=== PATIENT | female | born 1990 | race Caucasian/White ===

== ENCOUNTER → 2019-02-12 | Outpatient (CLI) | payer OTHER ==
--- NOTE | 2019-02-12 21:25 | CONS ---
CONSULTATION DATE OF SERVICE: 02/12/2019 29-year-old lady who has been evaluated in the sleep center for possible obstructive sleep apnea-hypopnea syndrome. HISTORY OF PRESENT ILLNESS/SLEEP WAKE EVALUATION: SLEEP SCHEDULE: Patient usual sleep schedule on working days from 9 p.m. to 8 am, and on weekends from 10 p.m. to 9:00 am. FALLING ASLEEP: Usually no problems with falling asleep, although has a TV set in bedroom. DURING SLEEP: The patient has loud snoring and awakenings from sleep up to 4 times with up to 3 episodes of nocturia. She also has symptoms of restless legs, but no history of kicking. DURING THE DAY/SLEEP WAKE EVALUATION: In the morning, she may wake up tired, has difficulties to pay attention. Has problem with concentration, depression and anxiety. [place] Sleepiness Scale is 8. She may take naps once a day at 1:00 pm. Usually she does not feel refreshed after naps. She may see vivid dreams during nap. No history of hypnagogic hallucinations, sleep paralysis or cataplexy. PAST MEDICAL HISTORY: Positive for questionable depression. MEDICATIONS: Zoloft, control pill. SOCIAL HISTORY: Negative for smoking. Alcohol consumption occasional. FAMILY HISTORY: Positive for hypertension, heart problems, hyperlipidemia, sleep apnea by her father, cancer, diabetes, mental illness. REVIEW OF SYSTEMS: Multiple awakenings from sleep, sleepiness during the day. Takes naps daily. PAST SURGICAL HISTORY: Tonsillectomy and tubes insertion in the ears in childhood. PHYSICAL EXAM: A pleasant lady without distress. BP 107/78, HR 82, RR 16, height 5 feet 2.5 inches, weight 170.2, body mass index 30.5, temperature 98.3, oxygen saturation at room air 98%. Oropharynx extremely low position of soft palate. Mallampati 4. Neck 14 inches in circumference. NECK: Supple, no JVD. Thyroid is not palpable. LUNGS: Clear to percussion and to auscultation. Good air exchange. No wheezing or rhonchi. HEART: S1, S2 regular. No murmurs, gallops, or rubs. ABDOMEN: Soft and nontender. Bowel sounds are present. No organomegaly appreciated. EXTREMITIES: No clubbing or cyanosis. 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 Cranial nerves 2 to 7 intact. There is no fasciculation or atrophy. noted. No focal deficits observed. IMPRESSION: 1. Loud snoring, multiple awakenings from sleep with nocturia, low position of soft palate. The patient takes naps daily, excessive daytime sleepiness, obstructive sleep apnea-hypopnea syndrome. 2. Restless leg symptoms. 3. Differential diagnosis should include hypersomnia because patient feels sleepy during the day. 4. Questionable depression but I doubt that. 5. Status post tonsillectomy. 6. History of ear infection in childhood, status post tube insertion. PLAN: 1. Polysomnography for evaluation of patient's breathing during sleep. 2. CPAP/BiPAP titration if sleep study confirms obstructive sleep apnea-hypopnea syndrome. 3. Preferable position during sleep on the side. 4. No driving if patient feels any sleepiness. 5. I will see patient for follow up visit to explain results of testing and following plan. 6. Multiple sleep latency test if the sleep study will be negative for obstructive sleep apnea-hypopnea syndrome. 7. The patient has symptoms of restless legs. SSRIs may increase the risk for periodic limb movements. Thank you very much for referring this patient for consultation. Sincerely, Josias Oshea MD, PhD, FAASM Diplomat of [place] [employer] [place] [employer] Pearl Peller of [facility] [place] MMODL / IJN: [id number] /
== END | disposition home or self-care (01) ==
LOC: SLEEP 15:31
PROVIDERS: ATTEND Internal Medicine
DX: R06.83 Snoring (principal); R35.1 Nocturia; G25.81 Restless legs syndrome; Z90.89 Acquired absence of other organs; Z86.69 Personal history of other diseases of the nervous system and sense organs; Z93.1 Gastrostomy status; Z79.3 Long term (current) use of hormonal contraceptives; Z79.899 Other long term (current) drug therapy
CPT/HCPCS: 99211

== ENCOUNTER 2022-11-06 10:29 | Outpatient (CLI) | payer OTHER ==
[2022-11-06 11:23] VITALS: BP 123/86; PULSE 113; RESP 16; TEMP 35.3
--- NOTE | 2022-11-18 13:19 | P.MSEPDOC ---
Presenting Problems - Arrival Data Date of Arrival on Unit: 11/06/22 Time of Arrival on Unit: 10:29 Mode of Transport: Ambulatory - Complaint OB-Reason for Admission/Chief Complaint: Decreased Movement Medical History - Information : 3 Para: 1 Term: 1 : 0 Abortions: Spontaneous or Elective: 1 Number of Living Children: 1 - Gestational Age Gestational Age by JHONATHAN (wks/days): 33 Weeks and 5 Days Review of Systems - Review of Systems Constitutional: No problems Breast: No problems ENT: No problems Cardiovascular: No problems Respiratory: No problems Gastrointestinal: No problems Genitourinary: No problems Musculoskeletal: No problems Neurological: No problems Skin: No problems Vital Signs - Temperature Temperature: 35.3 F Temperature Source: Temporal Artery Scan - Pulse Right Brachial Pulse Rate: 113 Pulse Assessment Method: Automatic Cuff - Respirations Respiratory Rate: 16 Oxygen Delivery Method: Room Air O2 Sat by Pulse Oximetry: 98 - Blood Pressure Right Arm Blood Pressure: 123/86 Blood Pressure Mean: 98 Blood Pressure Source: Automatic Cuff Physician Notification - Physician Notified Physician Notified Date: 11/06/22 Physician Notified Time: 11:05 Physician: Ora Felipe New Order Received: Yes - Notification Comment Comment: Dr. Felipe given report on pt. Pt c/o of decreased movement for two. days. VS WNL. Cat 1 FHTs noted. Reactive NST. movement noted per pt. Orders. recieved to d/c pt to home. Maternal Triage Index - Urgent/Priority 2 Urgent Priority 2: Yes Provider Notified: Ora Felipe Provider Notified Time: 10:38 Criteria Met for Priority 2: Pt reports decreased movement. Disposition - Disposition OB Disposition: Discharge to home Discharge Date: 11/06/22 Discharge Time: 11:11 I agree with the RN Medical Screening Exam: Yes Physician's MSE Comment: I have neither seen nor examined the patient. Case reviewed; plan agreed upon as documented in EMR&OBIX.: Yes Diagnosis: MATERNAL CARE FOR PROBLEM, UNSP, THIRD * DO NOT USE *
== END 2022-11-06 11:11 | disposition home or self-care (01) ==
LOC: FBPOP 10:29
PROVIDERS: ATTEND Obstetrics & Gynecology
DX: O36.8131 Decreased fetal movements, third trimester, fetus 1 (principal); Z3A.33 33 weeks gestation of pregnancy
CPT/HCPCS: 59025; 99213

== ENCOUNTER → 2023-11-04 | Outpatient (CLI) | payer BC, OTHER ==
[2023-11-04 16:07] VITALS: BP 123/81; PULSE 88; RESP 20; TEMP 98.3
--- NOTE | 2023-11-04 16:35 | P.SLEEP ---
History of Present Illness DATE: 11/04/2023 CONSULTATION/NEW PATIENT EVALUATION HISTORY OF PRESENT ILLNESS/SLEEP-WAKE EVALUATION: 33-year-old lady had been e valuated in the sleep center for possible obstructive sleep apnea hypopnea syndrome. SLEEP SCHEDULE: Usually sleep schedule from 89 PM to 5306 AM on weekdays and weekend. FALLING ASLEEP: Sometimes patient has difficulties with falling asleep. DURING SLEEP: Patient usually sleeps on the side or stomach position with loud snoring and awakenings from sleep up to 6 times with up to 3 episodes of nocturia, grinding teeth, restless leg symptoms. No history of hypnogogical hallucinations, sleep paralysis, or cataplexy. DURING THE DAY/WAKE STATE: In the morning patient wake up tired, has diffic ulties to pay attention, has problems with memory, concentration, irritability, depression. [place] sleepiness scale is increased to 11. Patient may take nap afternoon. PAST MEDICAL HISTORY: Depression, bipolar, ADHD. PAST SURGICAL HISTORY: Tonsillectomy. MEDICATIONS: Abilify 15 mg once a day, Adderall 40 mg once a day. SOCIAL HISTORY: Please see below. FAMILY HISTORY: Hypertension, heart problems, stroke, diabetes, mental illness. REVIEW OF SYSTEMS: Snoring, multiple awakenings from sleep, sleepiness during the day. No fevers. No double vision. No recent chest pain. No shortness of breath. No abdominal pain. No bleeding episodes. No blood in urine. No seizure episodes. PHYSICAL EXAMINATION: GENERAL: A pleasant patient without any distress. VITAL SIGNS: Please see below, weight 160.8 pounds, BMI 31.0. HEENT: PERRLA, EOMI. Evaluation of oropharynx showed tongue protrudes midline, low position of soft palate Mallampati 4. NECK: Supple. No JVD. Thyroid is not palpable. 14-3/4 inches in circumference. LUNGS: Clear to percussion and to auscultation. Good air exchange. No wheezing or rhonchi. HEART: S1, S2 regular. No murmurs, gallops or rubs. ABDOMEN: Soft and nontender. Bowel sounds are present. No organomegaly appreciated. EXTREMITIES: No clubbing or cyanosis. PLANT ENGINEER: Awake, alert, and oriented x3. Cranial nerves 2 to 7 intact. There is no fasciculation or atrophy noted. No focal deficits observed. ASSESSMENT: 1. Loud snoring, multiple awakenings from sleep, extremely low position of soft palate Mallampati 4, sleepiness with [place] Sleepiness Scale 11 while patient is on Adderall 40 mg a day. Obstructive sleep apnea hypopnea syndrome. 2. Mild obesity, BMI 31.0. 3. Depression. 4. Bipolar. 5 ADHD. 6 Status post tonsillectomy. PLAN: 1. Polysomnography for evaluation of patient's breathing during sleep. 2. Following plan after reading sleep study 3. Preferable position during sleep on the side. 4. No driving if patient feels any sleepiness. Patient is aware of civil and criminal liability for unsafe driving. 5. Sleep hygiene with regular sleep time for at least 7.5-8 hours. 6. Watching and losing weight. Thank you very much for referring this patient for consultation. Sincerely, Josias Oshea MD, PhD, FAASM. Diplomat of [place] [employer], Sleep Medicine Board by [place] [employer] [place] [employer] Statistician [employer] [facility] [place] cc: Yudelka Damon [facility] Past Medical History Additional Past Medical History / Comment(s): concusion 2010, MILD SLEEP APNEA, BIPOLAR, DEPRESSION, ADHD SNORING History of Any Multi-Drug Resistant Organisms: None Reported Past Surgical History: Adenoidectomy, Tonsillectomy Additional Past Surgical History / Comment(s): TUBES IN EARS Past Anesthesia/Blood Transfusion Reactions: No Reported Reaction Past Psychological History: ADD/ADHD, Bipolar, Depression Smoking Status: Never smoker Past Alcohol Use History: Occasional Past Drug Use History: None Reported - Past Family History Mother Family Medical History: No Reported History Additional Family Medical History / Comment(s): Crohns Father Family Medical History: Hypertension Additional Family Medical History / Comment(s): HEART PROBLEMS - [place], CARDIAC ABLATION X 2, BELIEVE HE WAS SHOCKED ALSO. Medications and Allergies Home Medications Medication Instructions Recorded Confirmed Type Pnv,Calcium 72/Iron/Folic Acid 1 each PO DAILY 05/27/15 12/20/22 History [ Plus Tablet] ARIPiprazole [Abilify] 15 mg PO DAILY 11/06/22 11/04/23 History traZODone HCL 100 mg PO ONCE 11/06/22 12/20/22 History Dextroamphetamine/Amphetamine 40 mg PO DAILY 11/04/23 11/04/23 History [Adderall] Allergies Allergy/AdvReac Type Severity Reaction Status Date / Time No Known Allergies Allergy Verified 12/20/22 06:15 Physical Exam Vitals: Vital Signs Temp Pulse Resp BP Pulse Ox 11/04/23 16:06 98.3 F 88 20 123/81 98 Intake and Output 11/04/23 11/04/23 11/04/23 06:59 14:59 22:59 Other: Weight 72.802 kg Sleep Note - Sleep Data ESS Total: 11 - Sleep Note Sleep Note: Temperature: 98.3 F Pulse Rate: 88 Respiratory Rate: 20 Blood Pressure: 123/81 SpO2: 98 Height: 5 ft 2 in Weight: 72.802 kg BMI: Neck Circumference: 14.7
== END ==
LOC: 3 N SLEEP 15:03
PROVIDERS: ATTEND Internal Medicine
DX: G47.33 Obstructive sleep apnea (adult) (pediatric) (principal); E66.9 Obesity, unspecified; F31.9 Bipolar disorder, unspecified; F90.9 Attention-deficit hyperactivity disorder, unspecified type; Z98.890 Other specified postprocedural states; Z90.89 Acquired absence of other organs; Z68.31 Body mass index [BMI] 31.0-31.9, adult
CPT/HCPCS: 99211